=== PATIENT | male | born 1995 | race Caucasian/White ===

== ENCOUNTER 2024-01-11 07:24 | Emergency (ER) | payer MEDICAID ==
[~2024-01-11] VITALS: Ht 180.3 cm; Wt 56.0 kg
[2024-01-11 07:25] VITALS: BP 143/87; PULSE 60; RESP 18; TEMP 98.7; O2SAT 97
== END 2024-01-11 10:33 | disposition left against medical advice (07) ==
LOC: ER 07:24
DX: S69.91XA Unspecified injury of right wrist, hand and finger(s), initial encounter (principal); Z53.21 Procedure and treatment not carried out due to patient leaving prior to being seen by health care provider; V00.131A Fall from skateboard, initial encounter; Y93.89 Activity, other specified; Y92.89 Other specified places as the place of occurrence of the external cause; Y99.8 Other external cause status
CPT/HCPCS: 73110